=== PATIENT | female | born 1980 | race Caucasian/White ===

== ENCOUNTER 2017-02-04 23:19 | Emergency (ER) | payer MEDICAID ==
[~2017-02-04] VITALS: Ht 157.5 cm; Wt 87.5 kg
[2017-02-04 23:34] VITALS: BP 137/70
--- NOTE | 2017-02-05 01:45 | NUR ---
TO ER BED 4
--- NOTE | 2017-02-05 01:55 | NUR ---
PATIENT PRESENTS TO ED WITH RT FACIAL SWELLING, PAIN, AND HOT FOR 3 DAYS. DENIES N/V/D; SKIN IS PINK/WARM/DRY; AAOX4 WITH EVEN AND STEADY GAIT; LUNGS CLEAR BL; HR EVEN AND REGULAR; PT DENIES ANY FEVER, CP, SOB, OR COUGH AT THIS TIME; PATIENT STATES PAIN OF 9/10 AT THIS TIME; PATIENT POSITIONED FOR COMFORT; HOB ELEVATED; BEDRAILS UP X2; BED DOWN. ER MD MADE AWARE OF PT STATUS.PER PT HAS HARD TIME SWALLOWING, NOTED SLIGHT SWELLING ON RIGHT LOWER FACE AND RIGHT NECK
[2017-02-05] MEDS ORDERED: KETOROLAC 60 MG/2 ML VIAL IM ONE (03:05)
[2017-02-05 03:26] VITALS: BP 119/74
--- NOTE | 2017-02-05 03:28 | NUR ---
Patient discharged with v/s stable. Written and verbal after care instructions given and explained. Patient alert, oriented and verbalized understanding of instructions. Ambulatory with steady gait. All questions addressed prior to discharge. ID band removed. Patient advised to follow up with PMD. Rx of BACTRIM,NORCO,KEFLEX,AND MOTRIN given. Patient educated on indication of medication including possible reaction and side effects. Opportunity to ask questions provided and answered.ENCOURAGED GURGGLE WITH WATER AND SALT AND PT AGREED WITH IT.
== END 2017-02-05 03:27 | disposition home or self-care (01) ==
LOC: MED 23:19
DX: L03.211 Cellulitis of face (principal); Z90.49 Acquired absence of other specified parts of digestive tract
CPT/HCPCS: 96372; 99283; J1885

== ENCOUNTER 2017-09-16 12:43 | Emergency (ER) | payer MEDICAID ==
[~2017-09-16] VITALS: Ht 165.1 cm; Wt 94.3 kg
[2017-09-16 13:14] VITALS: BP 143/75
--- NOTE | 2017-09-16 13:15 | NUR ---
PT SENT TO LOBBY TO WAIT FOR X-RAY.
--- NOTE | 2017-09-16 15:24 | NUR ---
PT AMBULATED TO ER BED 02
--- NOTE | 2017-09-16 15:25 | NUR ---
36/F C/O LEFT HAND PAIN & SLIGHTLY SWOLLEN SINCE LAST NIGHT; PT STATES SHE IS A [employer] AND DROPPED A TRAY LAST NIGHT; UNKNOWN INJURY. AAOX4 WITH EVEN AND STEADY GAIT; LUNGS CLEAR BL;PATIENT STATES PAIN OF 7/10 AT THIS TIME; PATIENT POSITIONED FOR COMFORT; HOB ELEVATED; BEDRAILS UP X2; BED DOWN. ER MD MADE AWARE OF PT STATUS.
[2017-09-16] MEDS ORDERED: KETOROLAC 60 MG/2 ML VIAL IM ONE (15:35)
[2017-09-16 16:16] VITALS: BP 131/81
--- NOTE | 2017-09-16 16:16 | NUR ---
Patient discharged with v/s stable. Written and verbal after care instructions given and explained. Patient alert, oriented and verbalized understanding of instructions. Ambulatory with steady gait. All questions addressed prior to discharge. ID band removed. Patient advised to follow up with PMD. Rx of NORCO, MOTRIN given. Patient educated on indication of medication including possible reaction and side effects. Opportunity to ask questions provided and answered.
== END 2017-09-16 16:16 | disposition home or self-care (01) ==
LOC: MED 12:43
DX: S63.502A Unspecified sprain of left wrist, initial encounter (principal); Z90.49 Acquired absence of other specified parts of digestive tract; X58.XXXA Exposure to other specified factors, initial encounter; Y93.89 Activity, other specified; Y92.89 Other specified places as the place of occurrence of the external cause; Y99.8 Other external cause status
CPT/HCPCS: 29125; 73110; 73130; 96372; 99284; J1885

== ENCOUNTER 2017-11-21 07:37 | Emergency (ER) | payer MEDICAID, OTHER ==
[~2017-11-21] VITALS: Ht 157.5 cm; Wt 94.3 kg
[2017-11-21 07:40] VITALS: BP 130/77
--- NOTE | 2017-11-21 07:40 | NUR ---
requesting medication refill, ativan 1mg po
--- NOTE | 2017-11-21 07:43 | NUR ---
PT REPORTS INCREASED ANXIETY EPISODES WITH NO "REAL STRESSORS", PT DENIES ANY DRUG/ETOH USE. PT REPORTS INCREASED ANXIETY AT WORK. DENIES DEPRESSION OR THOUGHTS OF HURTING SELF OR OTHERS.
[2017-11-21 08:02] VITALS: BP 130/77
== END 2017-11-21 08:05 | disposition home or self-care (01) ==
LOC: MED 07:37
DX: F41.0 Panic disorder [episodic paroxysmal anxiety] (principal); Z76.0 Encounter for issue of repeat prescription; Z90.89 Acquired absence of other organs; Z90.49 Acquired absence of other specified parts of digestive tract
CPT/HCPCS: 99283

== ENCOUNTER 2018-01-05 20:43 | Emergency (ER) | payer MEDICAID, OTHER ==
[~2018-01-05] VITALS: Ht 160 cm; Wt 90.7 kg
[2018-01-05 20:46] VITALS: BP 130/80
[2018-01-05] MEDS ORDERED: KETOROLAC 30 MG/ML VIAL IM ONE (21:25)
[2018-01-05 21:40] VITALS: BP 128/84
== END 2018-01-05 21:40 | disposition home or self-care (01) ==
LOC: MED 20:43
DX: M25.562 Pain in left knee (principal); R51 Headache; V43.52XA Car driver injured in collision with other type car in traffic accident, initial encounter; Y93.89 Activity, other specified; Y99.8 Other external cause status; Y92.488 Other paved roadways as the place of occurrence of the external cause
CPT/HCPCS: 73562; 96372; 99284; J1885

== ENCOUNTER 2021-02-19 17:55 | Emergency (ER) | payer MEDICAID ==
[~2021-02-19] VITALS: Ht 157.5 cm; Wt 78.0 kg
[2021-02-19 18:02] VITALS: BP 126/90
--- NOTE | 2021-02-19 19:35 | NUR ---
ELYSE FRYE WITH PT
[2021-02-19] MEDS ORDERED: METH-1681 PO (19:40)
[2021-02-19] MEDS ORDERED: KETOROLAC 30 MG/ML VIAL IM ONE (19:40)
[2021-02-19] MEDS ORDERED: NAPR-54 PO (19:40)
--- NOTE | 2021-02-19 19:40 | NUR ---
SEE COMPLETE ASSESSMENT
--- NOTE | 2021-02-19 20:04 | NUR ---
Patient discharged with v/s stable. Written and verbal after care instructions given and explained. Patient alert, oriented and verbalized understanding of instructions. Ambulatory with steady gait. All questions addressed prior to discharge. ID band removed. Patient advised to follow up with PMD. Rx of ROBAXIN AND NAPROSYN given. Patient educated on indication of medication including possible reaction and side effects. Opportunity to ask questions provided and answered.
== END 2021-02-19 20:04 | disposition home or self-care (01) ==
LOC: MED 17:55
DX: M25.512 Pain in left shoulder (principal)
CPT/HCPCS: 73030; 96372; 99283; J1885